=== PATIENT | female | born 1960 | race Caucasian/White ===

== ENCOUNTER 2016-09-15 19:00 | Emergency (ER) | payer OTHER | END 2016-09-15 19:30 | disposition home or self-care (01) | LOC: FER 19:00 | DX: R55 Syncope and collapse (principal); R11.2 Nausea with vomiting, unspecified; Z53.8 Procedure and treatment not carried out for other reasons ==

== ENCOUNTER 2020-09-07 12:48 | Emergency (ER) | payer OTHER ==
[~2020-09-07 12:48] MED LIST: NEXIUM 24HR20 MG PO; PEPCID AC20 MG PO; PHENERGAN25 M1 PO; PROMETHEGA12.5 MG/SU PR
[2020-09-07 13:31] LABS: BASOPHIL 0.4 % (0-2); EOSINOPHIL 0 % (0-5); HCT 41.3 % (37.0-47.0); HGB 14.4 g/dl (12.5-16.0); LYMPHOCYTE 4.2 % (15-48); MCH 31.5 pg (25.0-31.0); MCHC 34.9 g/dL (32.0-36.0); MCV 90.4 fL (78.0-100.0); MONOCYTE 3.9 % (0-12); MPV 10.6 fL (6.0-9.5); NEUTROPHIL 90.8 % (41-80); NRBC 0; PLT 221 K/uL (150-400); RBC 4.57 M/uL (4.20-5.40); RDW 13.5 % (11.5-14.0)
[2020-09-07 13:33] LABS: WBC 16.7 K/uL (4.0-10.5)
[2020-09-07 14:08] LABS: ALBUMIN 3.6 g/dL (3.4-5.0); BILIRUBIN - TOTAL 0.7 mg/dL (0.2-1.0); BUN/CREAT RATIO (CALC) 26.2 RATIO; CREATININE 0.65 mg/dL (0.51-0.95); POTASSIUM 3.7 mmol/L (3.5-5.1); TOTAL PROTEIN 7.6 g/dL (6.4-8.2)
[2020-09-07] MEDS ORDERED: BENTYL10 MG PO (14:57)
[2020-09-07] MEDS ORDERED: ONDANSETRON ODT4 MG PO (14:57)
[2020-09-07 15:06] LABS: BILIRUBIN NEGATIVE (NEGATIVE); BLOOD 1+ Ery/uL (NEGATIVE); CLARITY CLEAR (CLEAR); COLOR YELLOW (YELLOW); GLUCOSE (U) NORMAL (NORMAL); LEUKOCYTES NEGATIVE Leu/uL (NEGATIVE); NITRITE POSITIVE (NEGATIVE); PROTEIN NEGATIVE (NEGATIVE); SPECIFIC GRAVITY 1.015 (1.001-1.030); UROBILINOGEN 0.2 mg/dL (0.2-1.0)
[2020-09-07 15:11] LABS: BACTERIA 3+
[2020-09-07] MEDS ORDERED: CEFDINIR300 MG PO (15:37)
[2020-09-07] MEDS ORDERED: PHENERGAN12.5 M1 PO (16:17)
== END 2020-09-07 15:01 | disposition home or self-care (01) ==
LOC: FER 12:48
PROVIDERS: Emergency Medicine
DX: K52.9 Noninfective gastroenteritis and colitis, unspecified (principal); N39.0 Urinary tract infection, site not specified; I10 Essential (primary) hypertension; F17.200 Nicotine dependence, unspecified, uncomplicated
CPT/HCPCS: 36415; 80053; 81001; 83690; 85025; 87076; 87088; 87186; J0696; J1885; J2405; J2550; J2765; J7030; Q9967